=== PATIENT | female | born 1945 | race Caucasian/White ===

== ENCOUNTER 2022-12-19 09:51 | Emergency (ER) | payer OTHER ==
[~2022-12-19] VITALS: Ht 162.6 cm; Wt 87.0 kg
[2022-12-19 10:46] LABS: CHLORIDE 109 mEq/L (98-107)
[2022-12-19 10:48] LABS: BASOPHILS % 0.4 % (0.0-2.0); HEMATOCRIT. 41.6 % (36.0-48.0); LYMPHOCYTES % 15.6 % (20.0-50.0); MEAN CORPUSCULAR HEMOGLOBIN 29.4 pg (28.0-32.0); MEAN CORPUSCULAR VOLUME 87.6 fL (81.0-99.0); MEAN PLATELET VOLUME 8.2 fl (7.4-10.4); MONOCYTES % 7.8 % (2.0-8.0); NEUTROPHILS % 76.2 % (40.0-76.0); PLATELET 147 x1000/uL (130-400); RED BLOOD CELL COUNT 4.75 mill/uL (4.2-5.4); RED CELL DISTRIBUTION WIDTH 15.6 % (11.6-14.6)
[2022-12-19] MEDS ORDERED: ASPIRIN 325MG EC TABLET PO ONE (11:45)
[2022-12-19] MEDS ORDERED: METHYLPREDNISOLONE SOD SUCC 125 MG/2 ML VIAL IV ONE (11:45)
[2022-12-19] MEDS ORDERED: ALBUTEROL (0.5%) 2.5MG/0.5ML NEB HHN ONE (11:45)
[2022-12-19] MEDS ORDERED: FUROSEMIDE 20MG/2ML VIAL IVP ONE (11:45)
[2022-12-19 12:53] VITALS: BP 150/83
== END 2022-12-19 13:37 | disposition left against medical advice (07) ==
LOC: ER 10:13 → CANBEDREQ 17:57
DX: J44.1 Chronic obstructive pulmonary disease with (acute) exacerbation (principal); I50.9 Heart failure, unspecified; I48.91 Unspecified atrial fibrillation; I45.9 Conduction disorder, unspecified; R79.89 Other specified abnormal findings of blood chemistry; Z20.822 Contact with and (suspected) exposure to COVID-19
CPT/HCPCS: 36415; 71045; 80053; 83880; 84484; 85025; 87426; 93005; 96374; 99285; C9803; J1940; J2930